=== PATIENT | female | born 2000 | race Caucasian/White ===

== ENCOUNTER 2023-01-18 18:50 | Day surgery (SDC) | payer OTHER ==
[2023-01-18 19:16] VITALS: BMI 32.4
[2023-01-18] MEDS ORDERED: hydrALAZINE 20 MG/ML VIAL SLOW IVP PRN (19:41)
== END 2023-01-18 20:35 | disposition home or self-care (01) ==
LOC: CSHLD/OP 18:50
PROVIDERS: ATTEND Family Medicine
DX: O36.8120 Decreased fetal movements, second trimester, not applicable or unspecified (principal); R10.30 Lower abdominal pain, unspecified; O24.419 Gestational diabetes mellitus in pregnancy, unspecified control; O99.212 Obesity complicating pregnancy, second trimester; E66.9 Obesity, unspecified; O99.332 Smoking (tobacco) complicating pregnancy, second trimester; F17.290 Nicotine dependence, other tobacco product, uncomplicated; Z79.899 Other long term (current) drug therapy; Z3A.27 27 weeks gestation of pregnancy
CPT/HCPCS: 76815; 99282

== ENCOUNTER 2023-03-12 22:35 | Day surgery (SDC) | payer OTHER ==
[2023-03-12 23:01] VITALS: BMI 35.4
[2023-03-12] MEDS ORDERED: Ondansetron PF 4 MG/2 ML Vial IVP PRN (23:05)
[2023-03-12] MEDS ORDERED: hydrALAZINE 20 MG/ML VIAL SLOW IVP PRN (23:05)
[2023-03-12] MEDS ORDERED: Lactated Ringer's 1,000 ML IV SCH ×2 (23:15→23:30)
[2023-03-13] MEDS ORDERED: Calcium Carbonate 500 MG ChewTAB PO PRN (01:24)
== END 2023-03-13 02:10 | disposition home or self-care (01) ==
LOC: CSHLD/OP 22:35
PROVIDERS: ATTEND Family Medicine
DX: O99.613 Diseases of the digestive system complicating pregnancy, third trimester (principal); K52.9 Noninfective gastroenteritis and colitis, unspecified; O99.283 Endocrine, nutritional and metabolic diseases complicating pregnancy, third trimester; E86.0 Dehydration; O47.03 False labor before 37 completed weeks of gestation, third trimester; O98.813 Other maternal infectious and parasitic diseases complicating pregnancy, third trimester; A74.9 Chlamydial infection, unspecified; O99.013 Anemia complicating pregnancy, third trimester; D64.9 Anemia, unspecified; Z3A.34 34 weeks gestation of pregnancy
CPT/HCPCS: 96360; 96361; 96375; 99283; J2405

== ENCOUNTER 2023-04-14 19:30 | Inpatient (IN) | payer OTHER, SELFPAY ==
[2023-04-14] MEDS ORDERED: Carboprost 250 MCG/ML AMP IM PRN (20:36)
[2023-04-14] MEDS ORDERED: Lidocaine 1% (PF) 30 ML VIAL SC PRN (20:36)
[2023-04-14] MEDS ORDERED: HYDROcodone/Acetaminophen 5/325 mg Tablet PO PRN (20:36)
[2023-04-14] MEDS ORDERED: Ondansetron PF 4 MG/2 ML Vial IVP PRN (20:36)
[2023-04-14] MEDS ORDERED: Diphenoxylate HCl/Atropine Tablet PO PRN (20:36)
[2023-04-14] MEDS ORDERED: hydrALAZINE 20 MG/ML VIAL SLOW IVP PRN (20:36)
[2023-04-14] MEDS ORDERED: Acetaminophen 500 MG TAB PO PRN (20:36)
[2023-04-14] MEDS ORDERED: Promethazine HCl 25 MG/ML VIAL IM PRN (20:36)
[2023-04-14] MEDS ORDERED: Tranexamic Acid 1,000 MG/10 ML VIAL IVP PRN (20:36)
[2023-04-14] MEDS ORDERED: Misoprostol 200 MCG TAB PR PRN (20:36)
[2023-04-14] MEDS ORDERED: Ibuprofen 800 MG TAB PO PRN (20:36)
[2023-04-14] MEDS ORDERED: NS w/ Oxytocin 30 units 500 ML IV SCH ×3 (20:45)
[2023-04-14 20:52] VITALS: BMI 37.2
[2023-04-14] MEDS: Lactated Ringer's 1,000 ML IV SCH (21:10)
[2023-04-14 21:39] LABS: Hemoglobin 8.4 g/dL (12.0-15.5); Mean Corpuscular HGB CONC 30.2 g/dL (32.0-36.0); Mean Corpuscular Hemoglobin 23.7 pg (27.0-33.0); Mean Corpuscular Volume 78.3 fl (81.6-98.3); Platelet Count 274 10x3/uL (150-450); RBC Distribution Width 15.3 % (11.5-14.5); Red Blood Cell (RBC) Count 3.55 10x6/uL (3.90-5.03); White Blood Cell (WBC) Count 13.2 10x3/uL (3.5-10.5)
[2023-04-14] MEDS: Misoprostol 100 MCG TAB PO SCH (21:50)
[2023-04-14 22:04] LABS: HBSAg Index 0.13 S/CO (0-0.99); Hep B Surf Ag - L&D Non-Reactive S/CO (NonReactive)
[2023-04-15] MEDS ORDERED: Calcium Carbonate 500 MG ChewTAB PO PRN ×2 (02:15)
[2023-04-15 02:26] LABS: Syphilis Antibody Nonreactive (Nonreactive); Syphilis Antibody Index 0.05 S/CO (<1.00 Non-Reactive)
[2023-04-15] MEDS: Lactated Ringer's 1,000 ML IV SCH (04:45)
[2023-04-15] MEDS: Misoprostol 100 MCG TAB PO SCH ×2 (05:18→13:29)
[2023-04-15] MEDS ORDERED: Ondansetron PF 4 MG/2 ML Vial ONE (09:00)
[2023-04-15] MEDS ORDERED: Dexamethasone 4 mg/ml Vial ONE (09:00)
[2023-04-15] MEDS ORDERED: CEFAZOLIN 2 GM VIAL ONE (09:00)
[2023-04-15] MEDS ORDERED: Azithromycin 500 MG VIAL ONE (09:00)
[2023-04-15] MEDS ORDERED: Famotidine/PF 20 mg/2ml Vial ONE (09:00)
[2023-04-15] MEDS ORDERED: fentaNYL 50 mcg/mL 1 mL Vial ONE ×2 (09:08→09:22)
[2023-04-15] MEDS ORDERED: PHENYLEPHRINE-NS 100 MCG/ML 10 ML SYRINGE ONE (09:09)
[2023-04-15 09:25] LABS: pH (Cord, venous) 7.201 (7.250-7.350)
[2023-04-15] MEDS ORDERED: Ketorolac Tromethamine 30 MG/ML VIAL ONE (09:37)
[2023-04-15] MEDS ORDERED: Naloxone HCl 0.4 mg/ml Vial IV PRN (09:38)
[2023-04-15] MEDS ORDERED: Fentanyl 100 MCG/2 ML VIAL SLOW IVP PRN (09:38)
[2023-04-15] MEDS ORDERED: Ondansetron HCl/PF 4 MG/2 ML Vial IVP PRN (09:38)
[2023-04-15] MEDS ORDERED: diphenhydrAMINE 25 MG CAP PO PRN ×2 (09:38→11:43)
[2023-04-15] MEDS ORDERED: Zolpidem Tartrate 5 MG TAB PO PRN (09:38)
[2023-04-15] MEDS ORDERED: diphenhydrAMINE 50 MG/ML VIAL IM PRN (09:38)
[2023-04-15] MEDS ORDERED: FENTANYL 500 MCG/10 ML VIAL 2,000 MCG in Sodium Chloride 0.9% 60 ML IV PRN (09:38)
[2023-04-15] MEDS ORDERED: Ondansetron PF 4 MG/2 ML Vial IVP PRN ×2 (09:38→11:43)
[2023-04-15] MEDS ORDERED: Meperidine HCl/PF 25 MG/ML VIAL SLOW IVP PRN (09:38)
[2023-04-15] MEDS ORDERED: diphenhydrAMINE 50 MG/ML VIAL IVP PRN (09:38)
[2023-04-15] MEDS ORDERED: Promethazine HCl 25 MG/ML VIAL IM PRN ×2 (09:38→11:43)
[2023-04-15] MEDS ORDERED: Communication Order-Pharmacy FS PRN (09:45)
[2023-04-15] MEDS ORDERED: FENTANYL 500 MCG/10 ML VIAL 1,000 MCG in Sodium Chloride 0.9% 30 ML IV PRN (10:00)
[2023-04-15] MEDS: metroNIDAZOLE 500 MG in Premix Bag 1 BAG IVPB SCH ×2 (11:03→18:38)
[2023-04-15] MEDS ORDERED: Bisacodyl 10 MG SUPP PR PRN (11:43)
[2023-04-15] MEDS ORDERED: hydrALAZINE 20 MG/ML VIAL SLOW IVP PRN (11:43)
[2023-04-15] MEDS ORDERED: Boostrix 0.5 ML (Tdap) VIAL (>/=7 yrs of age) IM ONE (11:43)
[2023-04-15] MEDS ORDERED: HYDROcodone/Acetaminophen 5/325 mg Tablet PO PRN (11:43)
[2023-04-15] MEDS ORDERED: Ketorolac Tromethamine 30 MG/ML VIAL IVP SCH ×2 (15:45)
[2023-04-15] MEDS: CEFAZOLIN 2 GM in Sodium Chloride 0.9% 100 ML IVPB SCH ×2 (15:58→21:22)
[2023-04-15] MEDS: Docusate 100 MG CAP PO SCH (21:18)
[2023-04-15] MEDS: Ferrous Sulfate 325 MG TAB PO SCH (21:18)
[2023-04-16] MEDS: metroNIDAZOLE 500 MG in Premix Bag 1 BAG IVPB SCH ×3 (01:53→18:08)
[2023-04-16] MEDS: Simethicone Chewable 80 MG TAB PO PRN ×3 (01:59→21:22)
[2023-04-16 03:29] LABS: Hemoglobin 7.6 g/dL (12.0-15.5); Mean Corpuscular HGB CONC 29.6 g/dL (32.0-36.0); Mean Corpuscular Hemoglobin 23.4 pg (27.0-33.0); Mean Corpuscular Volume 79.1 fl (81.6-98.3); Mean Platelet Volume 10.8 fl (7.4-10.4); Platelet Count 276 10x3/uL (150-450); RBC Distribution Width 15.4 % (11.5-14.5); Red Blood Cell (RBC) Count 3.25 10x6/uL (3.90-5.03); White Blood Cell (WBC) Count 15.7 10x3/uL (3.5-10.5)
[2023-04-16] MEDS: CEFAZOLIN 2 GM in Sodium Chloride 0.9% 100 ML IVPB SCH ×3 (05:52→21:22)
[2023-04-16] MEDS: HYDROcodone/Acetaminophen 5/325 mg Tablet PO PRN ×4 (07:04→19:49)
[2023-04-16] MEDS: Ferrous Sulfate 325 MG TAB PO SCH ×2 (09:20→21:22)
[2023-04-16] MEDS: Docusate 100 MG CAP PO SCH ×2 (09:20→21:22)
[2023-04-16] MEDS: Prenatal Vitamin 1 TAB PO SCH (09:20)
[2023-04-16] MEDS: Ibuprofen 800 MG TAB PO SCH (21:22)
[2023-04-17] MEDS: HYDROcodone/Acetaminophen 5/325 mg Tablet PO PRN ×5 (00:02→20:05)
[2023-04-17] MEDS: metroNIDAZOLE 500 MG in Premix Bag 1 BAG IVPB SCH (01:56)
[2023-04-17] MEDS: Ibuprofen 800 MG TAB PO SCH ×3 (05:39→21:50)
[2023-04-17] MEDS: CEFAZOLIN 2 GM in Sodium Chloride 0.9% 100 ML IVPB SCH (05:39)
[2023-04-17] MEDS: Docusate 100 MG CAP PO SCH ×2 (09:03→20:05)
[2023-04-17] MEDS: Simethicone Chewable 80 MG TAB PO PRN ×2 (09:03→14:29)
[2023-04-17] MEDS: Prenatal Vitamin 1 TAB PO SCH (09:03)
[2023-04-17] MEDS: Ferrous Sulfate 325 MG TAB PO SCH ×2 (09:03→20:05)
[2023-04-17] MEDS: metroNIDAZOLE 500 MG TAB PO SCH ×3 (09:38→20:05)
[2023-04-17] MEDS: Cephalexin 500 MG CAP PO SCH ×2 (14:29→20:05)
[2023-04-18] MEDS: HYDROcodone/Acetaminophen 5/325 mg Tablet PO PRN ×4 (01:38→16:07)
[2023-04-18] MEDS: Ibuprofen 800 MG TAB PO SCH ×2 (05:38→14:23)
[2023-04-18 07:55] VITALS: BP 111/55; TEMP 98
[2023-04-18] MEDS: Cephalexin 500 MG CAP PO SCH ×2 (08:30→14:24)
[2023-04-18] MEDS: Prenatal Vitamin 1 TAB PO SCH (08:30)
[2023-04-18] MEDS: metroNIDAZOLE 500 MG TAB PO SCH ×2 (08:30→14:24)
[2023-04-18] MEDS: Ferrous Sulfate 325 MG TAB PO SCH (08:30)
[2023-04-18] MEDS: Docusate 100 MG CAP PO SCH (08:30)
[2023-04-20] MEDS ORDERED: Ibuprofen 800 MG TAB PO PRN (22:00)
[2023-04-20] MEDS ORDERED: Ibuprofen 800 MG TAB PO SCH (22:00)
== END 2023-04-18 17:50 | disposition home or self-care (01) | DRG 788 ==
LOC: CSHLD 20:16 → CSHPP 04-15 12:10
PROVIDERS: ADMIT Family Medicine; ATTEND Family Medicine
PROC: 10D00Z1 Extraction of Products of Conception, Low, Open Approach (ICD-10-PCS; principal; 2023-04-15)
PROC: 10907ZC Drainage of Amniotic Fluid, Therapeutic from Products of Conception, Via Natural or Artificial Opening (ICD-10-PCS; 2023-04-15)
PROC: 3E0P7VZ Introduction of Hormone into Female Reproductive, Via Natural or Artificial Opening (ICD-10-PCS; 2023-04-15)
PROC: 3E0P05Z Introduction of Adhesion Barrier into Female Reproductive, Open Approach (ICD-10-PCS; 2023-04-15)
PROC: 10H07YZ Insertion of Other Device into Products of Conception, Via Natural or Artificial Opening (ICD-10-PCS; 2023-04-15)
DX: O48.0 Post-term pregnancy (principal); O76 Abnormality in fetal heart rate and rhythm complicating labor and delivery; Z3A.40 40 weeks gestation of pregnancy; Z37.0 Single live birth; Z79.899 Other long term (current) drug therapy
CPT/HCPCS: 51702; 72170; 82805; 85027; 86780; 86850; 86900; 86901; 87340; J1100; J1885; J2405; J2590; J3010; J3490; J7120; S0028

== ENCOUNTER 2024-04-13 05:44 | Inpatient (IN) | payer OTHER ==
[2024-04-12 11:23] LABS: Hematocrit 31.4 % (34.9-44.5); Hemoglobin 9.7 g/dL (12.0-15.5); Platelet Count 333 10x3/uL (150-450)
[2024-04-12 12:19] LABS: HBsAg Index 0.34 S/CO (0-0.99); Hep B Surf Ag Non-Reactive S/CO (NonReactive)
[2024-04-12 12:20] LABS: Syphilis Antibody Nonreactive (Nonreactive); Syphilis Antibody Index 0.12 S/CO (<1.00 Non-Reactive)
[2024-04-13] MEDS ORDERED: Lactated Ringer's 1,000 ML IV SCH (06:33)
[2024-04-13] MEDS ORDERED: hydrALAZINE 20 MG/ML VIAL SLOW IVP PRN ×2 (06:33→10:48)
[2024-04-13] MEDS ORDERED: Ondansetron PF 4 MG/2 ML Vial IVP PRN ×4 (06:33→10:48)
[2024-04-13] MEDS ORDERED: Carboprost 250 MCG/ML AMP IM PRN (06:33)
[2024-04-13] MEDS ORDERED: Promethazine HCl 25 MG/ML VIAL IM PRN ×3 (06:33→10:48)
[2024-04-13] MEDS ORDERED: Bicitra 30 ML UDCUP PO PRN (06:33)
[2024-04-13] MEDS ORDERED: Tranexamic Acid 1,000 MG/10 ML VIAL IVP PRN (06:33)
[2024-04-13] MEDS ORDERED: Diphenoxylate HCl/Atropine Tablet PO PRN (06:33)
[2024-04-13] MEDS ORDERED: Misoprostol 200 MCG TAB PR PRN (06:33)
[2024-04-13] MEDS: Famotidine/PF 20 mg/2ml Vial SLOW IVP PRN (06:45)
[2024-04-13] MEDS: CEFAZOLIN 2 GM in Sodium Chloride 0.9% 100 ML IVPB SCH (06:46)
[2024-04-13 07:06] VITALS: BMI 37.2
[2024-04-13] MEDS ORDERED: Naloxone HCl 0.4 mg/ml Vial IV PRN (07:11)
[2024-04-13] MEDS ORDERED: fentaNYL 50 mcg/mL 1 mL Vial SLOW IVP PRN (07:11)
[2024-04-13] MEDS ORDERED: Moisturizing Cream (Eucerin) 113 GM JAR TOP PRN (07:11)
[2024-04-13] MEDS ORDERED: diphenhydrAMINE 50 MG/ML VIAL IVP PRN (07:11)
[2024-04-13] MEDS ORDERED: Naloxone HCl 0.4 mg/ml Vial IVP PRN ×2 (07:11)
[2024-04-13] MEDS ORDERED: Meperidine HCl/PF 25 MG (1 mL) VIAL SLOW IVP PRN (07:11)
[2024-04-13] MEDS ORDERED: Communication Order-Pharmacy FS SCH (07:15)
[2024-04-13] MEDS: Oxytocin 30 units/NS 500 ML 500 ML IV SCH (10:06)
[2024-04-13] MEDS ORDERED: Meperidine HCl/PF 25 MG (1 mL) VIAL IM PRN (10:48)
[2024-04-13] MEDS ORDERED: Bisacodyl 10 MG SUPP PR PRN (10:48)
[2024-04-13] MEDS ORDERED: Lanolin Ointment 7 GM TUBE TOP PRN (10:48)
[2024-04-13] MEDS ORDERED: diphenhydrAMINE 25 MG CAP PO PRN (10:48)
[2024-04-13] MEDS: Prenatal Vitamin 1 TAB PO SCH (12:57)
[2024-04-13] MEDS: Ferrous Sulfate 325 MG TAB PO SCH ×2 (12:57→20:13)
[2024-04-13] MEDS: Promethazine HCl 25 MG/ML VIAL ONE (12:57)
[2024-04-13] MEDS: Phytonadione Neonatal 1 MG/0.5 ML AMP ONE (12:57)
[2024-04-13] MEDS: Hepatitis B Vaccine 10 MCG/0.5 ML SYR ONE (12:58)
[2024-04-13] MEDS: Ketorolac Tromethamine 30 MG (1 mL) VIAL IVP SCH ×2 (14:08→20:13)
[2024-04-13] MEDS: Boostrix 0.5 ML (Tdap) VIAL (>/=7 yrs of age) IM ONE (14:20)
[2024-04-13] MEDS: Docusate 100 MG CAP PO SCH ×2 (14:20→20:12)
[2024-04-13] MEDS: Phenylephrine 40 MG/NS 250 ML 250 ML ONE (14:21)
[2024-04-13] MEDS: Ondansetron PF 4 MG/2 ML Vial ONE (14:21)
[2024-04-13] MEDS: Ketorolac Tromethamine 30 MG (1 mL) VIAL ONE (14:21)
[2024-04-13] MEDS: Sodium Chloride 0.9% 10 ML ONE (14:21)
[2024-04-13] MEDS: Oxytocin 10 UNITS/ML VIAL ONE (14:21)
[2024-04-13] MEDS: Morphine PF 10 MG/10 ML VIAL ONE (14:21)
[2024-04-13] MEDS: Erythromycin Base 0.5% Oint 1 GM TUBE ONE (14:21)
[2024-04-13] MEDS: PHENYLEPHRINE-NS 100 MCG/ML 10 ML SYRINGE ONE (14:21)
[2024-04-13] MEDS: ePHEDrine Sulfate 50 MG/10 ML VIAL ONE (14:21)
[2024-04-13] MEDS ORDERED: Ketorolac Tromethamine 30 MG (1 mL) VIAL IVP SCH (14:30)
[2024-04-13] MEDS ORDERED: Ketorolac Tromethamine 30 MG (1 mL) VIAL IVP PRN (14:30)
[2024-04-13] MEDS: HYDROcodone/Acetaminophen 5/325 mg Tablet PO PRN (23:29)
[2024-04-14 04:16] LABS: Hematocrit 26.2 % (34.9-44.5); Hemoglobin 7.9 g/dL (12.0-15.5); Mean Corpuscular HGB CONC 30.2 g/dL (32.0-36.0); Mean Corpuscular Hemoglobin 23.9 pg (27.0-33.0); Mean Corpuscular Volume 79.2 fL (81.6-98.3); Mean Platelet Volume 10.5 fL (7.4-10.4); Platelet Count 276 10x3/uL (150-450); RBC Distribution Width 23.7 % (11.5-14.5); Red Blood Cell (RBC) Count 3.31 10x6/uL (3.90-5.03); White Blood Cell (WBC) Count 11.1 10x3/uL (3.5-10.5)
[2024-04-14] MEDS: HYDROcodone/Acetaminophen 5/325 mg Tablet PO PRN (05:03)
[2024-04-14] MEDS: Prenatal Vitamin 1 TAB PO SCH (08:20)
[2024-04-14] MEDS: Simethicone Chewable 80 MG TAB PO PRN (08:30)
[2024-04-14] MEDS: Ibuprofen 800 MG TAB PO SCH (14:39)
[2024-04-15 08:42] VITALS: BP 116/59; TEMP 97.9
== END 2024-04-15 19:49 | disposition home or self-care (01) | DRG 788 ==
LOC: CSHLD 05:44 → CSHPP 10:59
PROVIDERS: ADMIT Family Medicine; ATTEND Family Medicine
PROC: 10D00Z1 Extraction of Products of Conception, Low, Open Approach (ICD-10-PCS; principal; 2024-04-13)
PROC: 3E033XZ Introduction of Vasopressor into Peripheral Vein, Percutaneous Approach (ICD-10-PCS; 2024-04-13)
DX: O34.211 Maternal care for low transverse scar from previous cesarean delivery (principal); Z3A.39 39 weeks gestation of pregnancy; Z37.0 Single live birth
CPT/HCPCS: 36415; 51702; 85014; 85018; 85027; 85049; 86780; 86850; 86900; 86901; 87340; J1885; J2274; J2405; J2550; J2590; J3490; S0028